=== PATIENT | female | born 1990 | race Caucasian/White ===

== ENCOUNTER 2018-04-21 23:48 | Observation (INO) ==
[2018-04-22] MEDS ORDERED: Ondansetron 4 MG/2 ML VIAL IVP ONE (00:13)
[2018-04-22] MEDS ORDERED: Ringers Solution, Lactated 1,000 ML IVC ONE (00:13)
[2018-04-22 00:54] LABS: Amphetamine Screen,Urine Negative ng/mL (Cutoff=1000); Barbiturate Screen,Urine Negative ng/mL (Cutoff=200); Benzodiazepines Screen,Urine Negative ng/mL (Cutoff=200); Cannabinoid Screen,Urine Negative ng/mL (Cutoff = 50); Cocaine Screen,Urine Negative ng/mL (Cutoff= 300); Opiate Screen,Urine Negative ng/mL (Cutoff=300); Phencyclidine Screen,Urine Negative ng/mL (Cutoff=25)
[2018-04-22] MEDS ORDERED: Pyridoxine (B-6) 50 MG TABLET PO ONE (01:30)
--- NOTE | 2018-04-22 01:37 | OB/GYN Progress Note ---
Date of Encounter: 04/22/18 Time of Encounter: 01:37 - Assessment and Plan (1) 28 weeks gestation of Current Visit: Yes Status: Acute Continue care as scheduled labor precautions given Discharge home (2) related nausea, antepartum Current Visit: Yes Status: Acute Eat small, frequent meals Sips of water throughout the day (3) Headache in Current Visit: Yes Status: Acute 650mg tylenol given Pt advised to visit emergency room for workup - declined. Qualifiers: Trimester: third trimester Qualified Code(s): O26.893 - Other specified related conditions, third trimester; R51 - Headache Subjective - Subjective Principal diagnosis: nausea in Interval history: Ms. Salinas is a 27-year-old female at 28 weeks who presents with complaints of decreased movement for the last 10 hours. She denies contractions, leakage of fluid, vaginal bleeding. She also reports that she has been nauseated for this time although has not tried any home remedies to cure her nausea. Antepartum ROS: new complaints, no loss of fluid, no vaginal bleeding, no movement normal, no contractions Objective - Vital Signs Vital Signs: Intake and Output 04/21/18 04/21/18 04/22/18 15:59 23:59 07:59 Other: Weight 76.657 kg Patient Weight 04/22/18 23:59 Weight 76.657 kg - Exam FHR: category 1 FHR comments: Baseline 140 Moderate variability Accelerations 10x10 Decelerations absent FHR Category I Auscultation: bilateral: normal Abdomen: Present: normal appearance, soft, gravid Uterus: Present: normal, firm
[2018-04-22] MEDS ORDERED: Acetaminophen 325 MG TABLET PO ONE (02:21)
[2018-04-22] MEDS ORDERED: Pyridoxine (B-6) 50 MG TABLET PO SCH (09:00)
== END 2018-04-22 02:40 | disposition home or self-care (01) ==
LOC: 1NENULAB
PROVIDERS: ADMIT Obstetrics & Gynecology; ATTEND Obstetrics & Gynecology

== ENCOUNTER → 2018-05-29 16:55 | Observation (INO) ==
[2018-05-29 16:39] LABS: Amphetamine Screen,Urine Negative ng/mL (Cutoff=1000); Barbiturate Screen,Urine Negative ng/mL (Cutoff=200); Benzodiazepines Screen,Urine Negative ng/mL (Cutoff=200); Cannabinoid Screen,Urine Negative ng/mL (Cutoff = 50); Cocaine Screen,Urine Negative ng/mL (Cutoff= 300); Opiate Screen,Urine Negative ng/mL (Cutoff=300); Phencyclidine Screen,Urine Negative ng/mL (Cutoff=25)
--- NOTE | 2018-05-29 16:55 | OB/GYN Progress Note ---
Date of Encounter: 05/29/18 Time of Encounter: 16:52 - Assessment and Plan (1) 33 weeks gestation of Current Visit: Yes Status: Acute (2) Decreased movement Current Visit: Yes Status: Acute Patient has felt some movement in triage, reactive NST, cervix 50/-2. Discharged home with labor and when to return to triage precautions. Patient verbalizes understanding Qualifiers: Fetus number: single or unspecified fetus Trimester: third trimester Qualified Code(s): O36.8130 - Decreased movements, third trimester, not applicable or unspecified Subjective - Subjective Interval history: 33 weeks presents to triage with complaints of decreased movement, and occasional contractions. Patient states she really has not felt the baby move since noon today, had contractions off and on yesterday and still has continued to have a couple today Denies vaginal bleeding. Antepartum ROS: movement normal, contractions, no loss of fluid, no vaginal bleeding Objective - Exam FHR: auscultation normal FHR comments: Baseline 130
== END | disposition home or self-care (01) ==
LOC: 1NENULAB
PROVIDERS: ADMIT Obstetrics & Gynecology; ATTEND Obstetrics & Gynecology

== ENCOUNTER 2018-06-23 13:42 | Observation (INO) ==
[2018-06-23] MEDS ORDERED: Ringers Solution, Lactated 1,000 ML IVC SCH (14:15)
[2018-06-23 15:11] LABS: Amphetamine Screen,Urine Negative ng/mL (Cutoff=1000); Barbiturate Screen,Urine Negative ng/mL (Cutoff=200); Benzodiazepines Screen,Urine Negative ng/mL (Cutoff=200); Cannabinoid Screen,Urine Negative ng/mL (Cutoff = 50); Cocaine Screen,Urine Negative ng/mL (Cutoff= 300); Opiate Screen,Urine Negative ng/mL (Cutoff=300); Phencyclidine Screen,Urine Negative ng/mL (Cutoff=25)
--- NOTE | 2018-06-23 16:09 | OB/GYN Progress Note ---
Date of Encounter: 06/23/18 Time of Encounter: 16:01 - Assessment and Plan (1) 37 weeks gestation of Current Visit: Yes Status: Acute NST reactive serial vaginal exams - no change Contractions decreased after fluid bolus and rest Discharge home with labor precautions Follow up in office with routine care as scheduled and PRN (2) NST (non-stress test) reactive Current Visit: Yes Status: Acute Subjective - Subjective Principal diagnosis: Contractions Interval history: Ms Salinas presents to the office with c/o contractions that began at 0400 this morning and have progressively worsened throughout the day. She states she had intercourse last night. She states positive movement. She denies headache, vision changes, epigastric pain, and leaking of fluid/vaginal bleeding. During this she has had GDM. She has a significant medical history DVT postop from hip surgery, 4 miscarriages, and seizure disorder. She has been seeing Dr Martins for her care. Antepartum ROS: movement normal, contractions, no loss of fluid, no vaginal bleeding Objective - Vital Signs Vital Signs: Intake and Output 06/23/18 06/23/18 06/23/18 07:59 15:59 23:59 Other: Weight 78.8 kg Patient Weight 06/23/18 23:59 Weight 78.8 kg - Exam FHR: auscultation normal, category 1 FHR comments: Baseline 135 Category I after position change and fluid bolus upon initial arrival Auscultation: bilateral: normal Abdomen: Present: normal appearance, soft, gravid Uterus: Present: normal. Absent: firm, tenderness Cervical dilation: 3 Cervix effacement: 75 station: -2
== END 2018-06-23 16:25 | disposition home or self-care (01) ==
LOC: 1NENULAB
PROVIDERS: ADMIT Advanced Practice Midwife; ATTEND Advanced Practice Midwife

== ENCOUNTER 2018-06-25 17:47 | Observation (INO) ==
[2018-06-25 18:49] LABS: Amphetamine Screen,Urine Negative ng/mL (Cutoff=1000); Barbiturate Screen,Urine Negative ng/mL (Cutoff=200); Benzodiazepines Screen,Urine Negative ng/mL (Cutoff=200); Cannabinoid Screen,Urine Negative ng/mL (Cutoff = 50); Cocaine Screen,Urine Negative ng/mL (Cutoff= 300); Opiate Screen,Urine Negative ng/mL (Cutoff=300); Phencyclidine Screen,Urine Negative ng/mL (Cutoff=25)
--- NOTE | 2018-06-25 19:22 | OB/GYN Progress Note ---
Date of Encounter: 06/25/18 Time of Encounter: 19:16 - Assessment and Plan (1) 37 weeks gestation of Current Visit: Yes Status: Chronic (2) Decreased movement Current Visit: Yes Status: Acute NST reactive with baseline 135, no decels, infrequent contractions. Qualifiers: Fetus number: single or unspecified fetus Trimester: third trimester Qualified Code(s): O36.8130 - Decreased movements, third trimester, not applicable or unspecified
== END 2018-06-25 20:00 | disposition home or self-care (01) ==
LOC: 1NENULAB
PROVIDERS: ADMIT Advanced Practice Midwife; ATTEND Advanced Practice Midwife

== ENCOUNTER 2018-07-02 07:53 | Inpatient (IN) ==
[2018-07-02 06:51] LABS: Amphetamine Screen,Urine Negative ng/mL (Cutoff=1000); Barbiturate Screen,Urine Negative ng/mL (Cutoff=200); Benzodiazepines Screen,Urine Negative ng/mL (Cutoff=300); Cannabinoid Screen,Urine Negative ng/mL (Cutoff = 50); Cocaine Screen,Urine Negative ng/mL (Cutoff= 300); Opiate Screen,Urine Negative ng/mL (Cutoff=300); Phencyclidine Screen,Urine Negative ng/mL (Cutoff=25)
--- NOTE | 2018-07-02 07:04 | OB/GYN History & Physical ---
Date of Encounter: 07/02/18 Time of Encounter: 06:54 Assessment and Plan (1) 38 weeks gestation of Current visit: Yes Status: Acute Admit to observation for labor evaluation Recheck cervix in 1-2 hours May ambulate as needed (2) Gestational diabetes Current visit: Yes Status: Acute Check fasting blood sugar, then in 2 hours Monitor for s/s of hypoglycemia Qualifiers: Gestational diabetes mellitus control: oral hypoglycemic-controlled Trimester: third trimester Qualified Code(s): O24.415 - Gestational diabetes mellitus in , controlled by oral hypoglycemic drugs (3) NST (non-stress test) reactive Current visit: No Status: Acute FHR 140 bpm, moderate variability, + 15x15 accels, no decels. Intermittent monitoring History of Present Illness Chief complaint: Labor HPI: Ms. Salinas is a 27 year old female at 38w3d who presents to L&D with complaints of contractions all night long. Denies fluid leakage and bleeding, reports active fetus. complicated by GDM, on Metformin. Previous recurrent losses. Workup completed by Dr. Martins during this . Blood type B+ GBS positive Rubella Immune HbSAG Non reactive T. Pall negative Varicella Immune Medical history significant for asthma, DVT in 2016 after hip surgery, stress seizures, PTSD, migraine headaches, and multiple surgeries. Dr. Martins aware of patient presence and status. Past Med Surg Social Fam HX - Past Medical History Source: patient Medical history: DVT, migraine, seizures Additional medical history: last seizure over a year ago Psychiatric history: anxiety, depression, PTSD - Past Surgical History Surgical History: cholecystectomy, orthopedic, other Additional surgical history: left wrist x2, left elbow x1, right hip sx - Social History Smoking Status: Current every day smoker Packs per day: 1/2 Smokeless Tobacco Status: No Alcohol use: none Drug use: none Activity Level: Independent ambulation Recent Out of Country Travel Within the Last 8 Weeks: No Exposure or Possible Exposure to Illness During Travel: No - Family History Father Living Status: Still Living Hx Family Cardiac Disorders: No Hx Family Respiratory Disorders: No Hx Family Cancer: No Hx Family GI Disorders: No Hx Family Endocrine Disorder: Yes (DM) Hx Family Neuromuscular Disorders: No Hx Family Neurologic Disorders: No Hx Family HEENT Disorders: No Hx Family Autoimmune Disorders: No Hx Family Psychosocial Disorders: Yes Obstetrical History - Pregnancies : 6 Para: 1 Term: 1 : 0 Ab's: 4 Livin Medications and Allergies Pnv62/FA/Om3/Dha/Epa/Fish Oil [[facility] Gummy Vitamins] 1 each PO DAILY 12/08 [History] Folic Acid [Folic Acid] 1 mg PO DAILY 02/20/18 [History] Famotidine [Pepcid] 1 tab PO BID 04/22/18 [History] metFORMIN [Glucophage] 500 mg PO BIDWM 05/29/18 [History] Albuterol Sulfate [Albuterol Inhaler] 1 puff PO PRN 07/02/18 [History] 3 Allergy/AdvReac Type Severity Reaction Status Date / Time ceftriaxone [From Rocephin] Allergy Anaphylaxis Verified 07/02/18 06:22 cefuroxime [From Ceftin] Allergy Anaphylaxis Verified 07/02/18 06:22 sumatriptan [From Imitrex] Allergy Anaphylaxis Verified 07/02/18 06:22 ziprasidone [From Geodon] Allergy Swelling Verified 07/02/18 06:22 of Lip/Tongue/Throat latex AdvReac Anaphylaxis Verified 07/02/18 06:22 naproxen AdvReac Hives Verified 07/02/18 06:22 tramadol AdvReac Hives Verified 07/02/18 06:22 Review of System OB - Psychiatric Psychiatric: anxiety, suicidal ideation Exam - Constitutional Constitutional: well developed, well nourished, no acute distress - Neck Neck exam: full ROM - Lungs Respiratory exam: CTAB - Cardiovascular Cardiovascular exam: RRR, +S1, +S2 - Breasts Breast: bilateral: normal - Abdomen Abdomen: Present: bowel sounds normal, gravid, non tender - Extremities Extremities exam: full ROM, normal capillary refill, normal inspection - Vagina Vagina: Present: normal moisture - Cervix Dilation: 5 (4.5 per RN) Effacement: 80 Station: -2 - Uterus Uterus exam: Present: normal size Results All other labs normal. - VTE Reasons for not Prescribing Prophylaxis: Treatment not Indicated - Low risk for VTE
[~2018-07-02 07:53] MED LIST: Famotidine 20 MG/2 ML VIAL IVP PRN; Metoclopramide 10 MG/2 ML VIAL IVP PRN; Naloxone 0.4 MG/ML INJ IVP PRN; Ondansetron 4 MG/2 ML VIAL IVP PRN; Penicillin G Potassium 5,000,000 UNIT in 0.9 % Sodium Chloride Mini Bag 100 ML IVPB ONE; Ringers Solution, Lactated 1,000 ML IVC SCH
[2018-07-02] MEDS ORDERED: Penicillin G Potassium 2,500,000 UNIT in 0.9 % Sodium Chloride 100 ML IVPB SCH (08:00)
[2018-07-02 08:43] LABS: Basophils % 0.2 %; Eosinophils % 0.2 %; Hematocrit 35.7 % (35.3-44.9); Hemoglobin 12.3 g/dL (11.5-15.4); Immature Granulocytes % 0.7 % (0-4); Lymphocytes # 1.8 K/mcL (0.6-4.6); Lymphocytes % 13.7 %; Mean Corpuscular HGB Conc 34.5 g/dL (31.6-35.5); Mean Corpuscular Hemoglobin 29.5 pg (28.0-33.3); Mean Corpuscular Volume 85.6 fL (83.0-100.0); Mean Platelet Volume 10.8 fL (9.4-12.4); Monocytes # 0.7 K/mcL (0.0-1.3); Monocytes % 5.1 %; Neutrophils # 10.3 K/mcL (1.6-8.9); Platelet Count 186 K/mcL (140-400); Red Blood Count 4.17 M/mcL (3.82-4.97); Red Cell Distribution Width 13.2 % (11.5-14.5); Segmented Neutrophils % 80.1 %
[2018-07-02] MEDS ORDERED: *HR* FentaNYL (PF) 100 MCG/2 ML VIAL ONE (08:53)
[2018-07-02] MEDS ORDERED: Lidocaine -MPF 1% 5 ML AMPUL ONE (08:54)
[2018-07-02] MEDS ORDERED: Bupivacaine-MPF 0.25% 10 ML VIAL ONE (08:54)
[2018-07-02] MEDS ORDERED: Epidural Premix (fent/bupiv) 110 ML EP ONE (09:16)
[2018-07-02] MEDS ORDERED: Bupivacaine-MPF 0.25% 10 ML VIAL EP ONE (09:20)
[2018-07-02] MEDS ORDERED: EPHEDrine 50 MG/ML VIAL IVP PRN (09:20)
[2018-07-02] MEDS ORDERED: *HR* FentaNYL (PF) 100 MCG/2 ML VIAL EP ONE (09:20)
--- NOTE | 2018-07-02 09:23 | Anesthesia Procedures ---
Date of Encounter: 07/02/18 Time of Encounter: 09:00 Procedures: Anesthesia - Epidural/Spinal Patient ID/Chart reviewed: Yes Patient examined: Yes OB Eval: Contractions: Non-stressed pattern Consent Obtained: Yes Supplemental Oxygen: None/Room Air Site Prep: Aseptic Technique Patient position: upright Local Anesthetic: Lidocaine 1% Amount of Local Anesthetic used: 3 Touhy Needle Gauge: 18 Touhy Needle Depth (cm): 5 Catheter Depth at Skin (cm): 12 Test Dose (1.5% Lido + Epi): Volume given (mls): 3 Test Dose Result: Negative Loading Dose: 0.25% Marcaine (mls): 5 Loading Dose: Fentanyl (mcg): 100 Loading Dose Administered: Thru Touhy Needle Infusion Med: 0.125% Bupivacaine w/ 2 mcg/ml Fentanyl Catheter Secured in Place: Tegaderm Interspace Used: L3-L4 Loss of Resistance (THIERRY): Yes Blood: No CSF: No Paresthesia: No
--- NOTE | 2018-07-02 09:25 | Anesthesia Evaluation PreOp ---
Date of Encounter: 07/02/18 Time of Encounter: 09:00 - Past History Planned Operation: katy Cardiac History: Denies any Significant Hx Pulmonary History: Smoker, Asthma SENIOR RESEARCH MANAGER History: Denies Any Significant HX Other Medical History: Diabetes Type II (gestational) Anesthesia History: No Prior Anesthetic Complications, Past Anesthesia : Yes Alcohol Use: none Drug use: none Medications and Allergies Pnv62/FA/Om3/Dha/Epa/Fish Oil [[facility]vs Gummy Vitamins] 1 each PO DAILY 12/08 [History] Folic Acid [Folic Acid] 1 mg PO DAILY 02/20/18 [History] Famotidine [Pepcid] 1 tab PO BID 04/22/18 [History] metFORMIN [Glucophage] 500 mg PO BIDWM 05/29/18 [History] Albuterol Sulfate [Albuterol Inhaler] 1 puff PO PRN 07/02/18 [History] 3 Allergy/AdvReac Type Severity Reaction Status Date / Time ceftriaxone [From Rocephin] Allergy Anaphylaxis Verified 07/02/18 06:22 cefuroxime [From Ceftin] Allergy Anaphylaxis Verified 07/02/18 06:22 sumatriptan [From Imitrex] Allergy Anaphylaxis Verified 07/02/18 06:22 ziprasidone [From Geodon] Allergy Swelling Verified 07/02/18 06:22 of Lip/Tongue/Throat latex AdvReac Anaphylaxis Verified 07/02/18 06:22 naproxen AdvReac Hives Verified 07/02/18 06:22 tramadol AdvReac Hives Verified 07/02/18 06:22 - Meds/Allergy Pre-op Review Medications Reviewed: Yes Allergies Reviewed: Yes Beta Blockers on Current Med List: No Anesthesia Results - Labs 07/02/18 08:05 Anesthesia Exam O2 Sat Height 1.65 m Weight 81.647 kg Height: 65 Weight: 81 - HEENT Pupil (Motor): Pupils equal Mallampati: II Teeth: Normal Oral Opening: Greater than 3 - SENIOR RESEARCH MANAGER LOC: Oriented SENIOR RESEARCH MANAGER Motor: Normal RUE, Normal LUE, Normal RLE, Normal LLE, Normal Face SENIOR RESEARCH MANAGER Sensory: Normal: RUE, LUE, RLE, LLE, Face - Cardiac Rhythm: Regular Murmur: None JVD: No Carotid Bruit: No - Pulmonary Breath Sounds: bilateral Clear Respiratory Effort: Symmetrical Anesthesia Assess/Plan ASA Score: 2 Modified Melvin Scale for Level of Consciousness: Cooperative, oriented, and tranquil Anesthetic Plan: Regional Monitoring Plan: Standard Monitors
[2018-07-02] MEDS ORDERED: Epidural Premix (fent/bupiv) 110 ML EP SCH (09:30)
--- NOTE | 2018-07-02 11:36 | OB Labor Progress Note ---
Date of Encounter: 07/02/18 Time of Encounter: 11:35 Labor Progress Note - Subjective Subjective: Pt comfortable with epidural. - Heart Tones Heart Tones: Category I - Well[place] Wellton: irregular - Plan Plan: Plan for pitocin augmentation. Frequent repositioning. Anticipate .
[2018-07-02] MEDS ORDERED: Oxytocin 20 units/ LR 1000 mL 20 UNIT/1,000 ML BAG IVC ONE (11:41)
[2018-07-02] MEDS ORDERED: Oxytocin 20 units/ LR 1000 mL 20 UNIT/1,000 ML BAG IVC SCH ×2 (11:45→16:02)
--- NOTE | 2018-07-02 13:15 | OB/GYN Procedure Note ---
Delivery - Delivery Date: 07/02/18 Provider: Marjorie Will Intrapartum events: none, meconium Delivery induction: none Delivery augmentation: pitocin Delivery monitor: external FHT, external uterine Anesthesia: epidural Quantitated Blood Loss: 100 - Infant (s) Infant A Delivery Date: 07/02/18 Infant Delivery Time: 12:42 Presentation: vertex Position: PRINCE Route of delivery: Gender: Male Viability: Viable Pounds: 6 Weight Gram: 2.735 kg at 1 minute: 8 at 5 mins: 9 Shoulder Dystocia: not encountered Placenta: spontaneous Cord: nuchal cord, 3 umbilical vessels - Repair Episiotomy: none Laceration Description: None - Complications Delivery complications: none - Disposition Mom disposition: stable in LDR disposition: stable in LDR - Comments Comments: Ms. Salinas is a 27 year old female who presented at 38w3d with contractions and progressed to a . Loose nuchal easily reduced. Patient delivered a viable baby boy "Aristides" weighing 6lbs with apgars of 8 at 1 minute and 9 at 5 minutes. Cord was clamped and cut after pulsation ceased. Placenta delivered spontaneously and intact. EBL 100ml. Mom resting with baby skin-to- skin.
[2018-07-02] MEDS ORDERED: Measles/Mumps/Rubella Vacc 0.5 ML VIAL SQ PRN (16:02)
[2018-07-02] MEDS ORDERED: Acetaminophen 325 MG TABLET PO PRN (16:02)
[2018-07-02] MEDS ORDERED: *HR* Enoxaparin 40 MG/0.4 ML SYRINGE SQ SCH (21:00)
[2018-07-02] MEDS: Ibuprofen 600 MG TABLET PO PRN (22:12)
[2018-07-03] MEDS: Ibuprofen 600 MG TABLET PO PRN ×2 (04:13→10:37)
[2018-07-03] MEDS ORDERED: *HR* Enoxaparin 40 MG/0.4 ML SYRINGE SQ SCH (06:00)
[2018-07-03] MEDS ORDERED: Prenatal Vit/FA 1 EACH TABLET PO SCH (09:00)
[2018-07-03 09:21] VITALS: BP 110/66
--- NOTE | 2018-07-03 09:58 | Discharge Summary ---
Date of Encounter: 07/03/18 Time of Encounter: 09:54 - Discharge Diagnosis (1) Vaginal delivery Priority: Primary Status: Acute Comments: S/P vaginal delivery day 1 Pain is well controlled lochia is light and without clots Tolerating regular diet. Voiding without difficulty and passing flatus VSS Breast feeding Discharge home today (2) History of DVT of lower extremity Priority: Secondary Status: Acute - Discharge Medications Prescriptions: Ibuprofen [Motrin] 600 mg PO Q6HR PRN #30 tablet PRN Reason: Cramping Docusate [Colace] 100 mg PO BID PRN #30 capsule PRN Reason: Constipation Enoxaparin [Lovenox] 40 mg SQ 0600 42 Days #42 syringe Ferrous Sulfate 325 mg PO DAILY #90 tablet Home Medications: Pnv62/FA/Om3/Dha/Epa/Fish Oil [[facility] Gummy Vitamins] 1 each PO DAILY 12/08 [History] Folic Acid 1 mg PO DAILY 02/20/18 [History] Famotidine [Pepcid] 1 tab PO BID 04/22/18 [History] Albuterol Sulfate [Albuterol Inhaler] 1 puff PO PRN 07/02/18 [History] Acetaminophen [Tylenol] 650 mg PO Q6HR PRN tablet 07/03/18 [Rx] Calcium Carbonate [Tums] 1,000 mg PO Q4HR PRN tab.chew 07/03/18 [Rx] Docusate [Colace] 100 mg PO BID PRN #30 capsule 07/03/18 [Rx] Enoxaparin [Lovenox] 40 mg SQ 0600 42 Days #42 syringe 07/03/18 [Rx] Ferrous Sulfate 325 mg PO DAILY #90 tablet 07/03/18 [Rx] Ibuprofen [Motrin] 600 mg PO Q6HR PRN #30 tablet 07/03/18 [Rx] Allergies/Adverse Reactions: 3 Allergy/AdvReac Type Severity Reaction Status Date / Time ceftriaxone [From Rocephin] Allergy Anaphylaxis Verified 07/02/18 06:22 cefuroxime [From Ceftin] Allergy Anaphylaxis Verified 07/02/18 06:22 sumatriptan [From Imitrex] Allergy Anaphylaxis Verified 07/02/18 06:22 ziprasidone [From Geodon] Allergy Swelling Verified 07/02/18 06:22 of Lip/Tongue/Throat latex AdvReac Anaphylaxis Verified 07/02/18 06:22 naproxen AdvReac Hives Verified 07/02/18 06:22 tramadol AdvReac Hives Verified 07/02/18 06:22 Data Procedures and tests throughout hospitalization: Laboratory Tests 07/02/18 07/02/18 07/02/18 06:22 08:05 09:24 WBC 12.8 H RBC 4.17 Hgb 12.3 Hct 35.7 MCV 85.6 MCH 29.5 MCHC 34.5 RDW 13.2 Plt Count 186 MPV 10.8 Immature Gran % 0.7 Seg Neutrophils % 80.1 Lymphocytes % 13.7 Monocytes % 5.1 Eosinophils % 0.2 Basophils % 0.2 Neutrophils # 10.3 H Lymphocytes # 1.8 Monocytes # 0.7 Eosinophils # 0.0 Basophils # 0.0 POC Glucose 90 Urine Opiates Screen Negative Ur Barbiturates Screen Negative Ur Phencyclidine Scrn Negative Ur Amphetamines Screen Negative U Benzodiazepines Scrn Negative Urine Cocaine Screen Negative U Marijuana (THC) Screen Negative Ur Drug Screen Interp See Below 07/02/18 07/03/18 13:08 06:44 WBC RBC Hgb Hct MCV MCH MCHC RDW Plt Count MPV Immature Gran % Seg Neutrophils % Lymphocytes % Monocytes % Eosinophils % Basophils % Neutrophils # Lymphocytes # Monocytes # Eosinophils # Basophils # POC Glucose 81 119 H Urine Opiates Screen Ur Barbiturates Screen Ur Phencyclidine Scrn Ur Amphetamines Screen U Benzodiazepines Scrn Urine Cocaine Screen U Marijuana (THC) Screen Ur Drug Screen Interp Labs on day of discharge: Labs from last 24 hours 07/03/18 07/02/18 06:44 13:08 POC Glucose 119 H 81 Date of admission: 07/02/18 08:36 Primary care physician: Aline Carvalho CNP Consults: 07/02/18 16:02 Consult to Job Lithographer [CONS] Routine Comment: Vaginal delivery, consult needed 07/03/18 07:00 Consult to Needle Straightener (W&C) [CONS] Routine Reason For Exam: Reason for SW Consult: history of depression, now Discharging clinician: Fany Allen Anticipated date of discharge: 07/03/18 - Patient Status Disposition: Home, Self-Care Condition: Good Functional capacity at discharge: independent ambulation Overall status at discharge: patient is progressing back to baseline - Discharge Instructions Follow Up With: Aline Carvalho, DAVID [Primary Care Provider] - Candida Martins DO [Partnered Physician] - - Diet and Activity Activity: increase activity as tolerated Diet: regular diet Hospital Course Reason for admission: active labor, IUP at term Delivery: Episiotomy: none Other procedures: none complications: none Discharge diagnosis: IUP at term delivered [place] baby: male Time Attestation: Total time spent providing and/or coordinating discharge services: Time Spent: Less than 30 minutes Exam - Constitutional Vitals: Temp Pulse Resp BP Pulse Ox 97.8 F 97 14 110/66 98 07/03/18 09:20 07/03/18 09:20 07/03/18 09:20 07/03/18 09:20 07/03/18 09:20 General appearance IM: cooperative, A&O X 3, pleasant - Respiratory Respiratory exam: Present: CTAB - Cardiovascular Cardiovascular exam IM: Present: RRR, +S1, +S2 - GI/Abdominal GI/Abdominal exam IM: normal bowel sounds, soft - Rectal Rectal exam: deferred - Uterine Tone: Firm Uterus Position: At Umbilicus, Midline - Extremities Exam Extremities exam IM: Present: normal capillary refill, normal inspection, radial pulses palpable and symmetrical - Neurological Exam Neurological exam: alert, oriented X3
== END 2018-07-03 13:45 | disposition home or self-care (01) | DRG 560 ==
LOC: 1NENULAB → 1NENUOBS 16:00
PROVIDERS: ADMIT Advanced Practice Midwife; ATTEND Advanced Practice Midwife

== ENCOUNTER 2019-11-17 21:25 | Inpatient (IN) ==
[2019-11-17 20:59] LABS: Basophils % 0.2 %; Eosinophils % 0.1 %; Hematocrit 32.9 % (35.3-44.9); Hemoglobin 10.9 g/dL (11.5-15.4); Immature Granulocytes % 0.5 % (0-4); Lymphocytes # 0.5 K/mcL (0.6-4.6); Lymphocytes % 5.5 %; Mean Corpuscular HGB Conc 33.1 g/dL (31.6-35.5); Mean Corpuscular Hemoglobin 28.7 pg (28.0-33.3); Mean Corpuscular Volume 86.6 fL (83.0-100.0); Mean Platelet Volume 11.3 fL (9.4-12.4); Monocytes # 0.6 K/mcL (0.0-1.3); Monocytes % 5.8 %; Neutrophils # 8.4 K/mcL (1.6-8.9); Platelet Count 169 K/mcL (140-400); Red Cell Distribution Width 13.4 % (11.5-14.5); Segmented Neutrophils % 87.9 %; White Blood Count 9.5 K/mcL (4.3-11.1)
[2019-11-17 21:03] LABS: Amphetamine Screen,Urine Negative ng/mL (Cutoff=1000); Barbiturate Screen,Urine Negative ng/mL (Cutoff=200); Benzodiazepines Screen,Urine Negative ng/mL (Cutoff=200); Cannabinoid Screen,Urine Negative ng/mL (Cutoff = 50); Cocaine Screen,Urine Negative ng/mL (Cutoff= 300); Opiate Screen,Urine Negative ng/mL (Cutoff=300); Phencyclidine Screen,Urine Negative ng/mL (Cutoff=25)
[~2019-11-17 21:25] MED LIST changes: +*HR* FentaNYL (PF) 100 MCG/2 ML VIAL IVP PRN; +Azithromycin 500 MG in 0.9 % Sodium Chloride 250 ML IVPB ONE; +Lidocaine 1% 20 ML MDV INFILT PRN; +Ringers Solution, Lactated 2,000 ML ONE
[2019-11-17] MEDS ORDERED: Oxytocin 20 units/ LR 1000 mL 20 UNIT/1,000 ML BAG IVC SCH (22:30)
[2019-11-17] MEDS ORDERED: EPHEDrine 50 MG/ML VIAL IVP PRN (23:24)
[2019-11-17] MEDS ORDERED: Bupivacaine/EPI 1:200k 0.25%PF 10 ML VIAL INFILT ONE (23:27)
[2019-11-17] MEDS ORDERED: *HR* FentaNYL (PF) 100 MCG/2 ML VIAL ONE (23:27)
[2019-11-17] MEDS ORDERED: Epidural Premix (fent/bupiv) 110 ML EP ONE (23:28)
[2019-11-17] MEDS ORDERED: Epidural Premix (fent/bupiv) 110 ML EP SCH (23:30)
[2019-11-18] MEDS ORDERED: EPHEDrine 50 MG/ML VIAL ONE (00:12)
[2019-11-18] MEDS: Penicillin G Potassium 2,500,000 UNIT in 0.9 % Sodium Chloride 100 ML IVPB SCH ×2 (01:23→05:20)
[2019-11-18] MEDS ORDERED: Ropivacaine/PF 0.2% 20 ML VIAL ONE (06:46)
[2019-11-18] MEDS ORDERED: Oxytocin 20 units/ LR 1000 mL 20 UNIT/1,000 ML BAG IVC ONE (08:13)
[2019-11-18] MEDS ORDERED: Oxytocin 20 units/ LR 1000 mL 20 UNIT/1,000 ML BAG IVC SCH (08:13)
[2019-11-18] MEDS ORDERED: Measles/Mumps/Rubella Vacc 0.5 ML VIAL SQ PRN (08:13)
[2019-11-18] MEDS ORDERED: Rho Immune Globulin 1,500 UNIT SYRINGE IM PRN (08:13)
[2019-11-18] MEDS: Ibuprofen 600 MG TABLET PO PRN ×3 (08:44→22:09)
[2019-11-18] MEDS ORDERED: PAROXETINE HCL PO SCH (09:00)
[2019-11-18] MEDS: Prenatal Vit/FA 1 EACH TABLET PO SCH (11:16)
[2019-11-18] MEDS: Acetaminophen 325 MG TABLET PO PRN ×2 (12:28→18:49)
[2019-11-18] MEDS ORDERED: Ringers Solution, Lactated 500 ML IVC ONE (13:52)
[2019-11-18] MEDS ORDERED: Nicotine 14 MG PATCH.TD24 TD SCH (19:00)
[2019-11-18] MEDS: *HR* Enoxaparin 40 MG/0.4 ML SYRINGE SQ SCH (22:39)
[2019-11-19] MEDS: Ibuprofen 600 MG TABLET PO PRN (05:43)
[2019-11-19 07:36] LABS: Basophils % 0.2 %; Eosinophils % 0.4 %; Hemoglobin 10.5 g/dL (11.5-15.4); Immature Granulocytes % 0.6 % (0-4); Lymphocytes % 18.9 %; Mean Corpuscular HGB Conc 32.8 g/dL (31.6-35.5); Mean Corpuscular Hemoglobin 28.5 pg (28.0-33.3); Mean Platelet Volume 11.2 fL (9.4-12.4); Monocytes # 0.4 K/mcL (0.0-1.3); Monocytes % 6.8 %; Neutrophils # 3.9 K/mcL (1.6-8.9); Platelet Count 140 K/mcL (140-400); Red Blood Count 3.68 M/mcL (3.82-4.97); Red Cell Distribution Width 13.6 % (11.5-14.5); Segmented Neutrophils % 73.1 %; White Blood Count 5.3 K/mcL (4.3-11.1)
[2019-11-19 08:21] VITALS: BP 113/65
[2019-11-19] MEDS: Prenatal Vit/FA 1 EACH TABLET PO SCH (08:34)
[2019-11-19] MEDS ORDERED: Etonogestrel 68 MG IMPLANT IL ONE (08:36)
[2019-11-19] MEDS ORDERED: Lidocaine 1% 20 ML MDV INFILT ONE (08:36)
[2019-11-19] MEDS: *HR* Enoxaparin 40 MG/0.4 ML SYRINGE SQ SCH (08:37)
[2019-11-19] MEDS: Acetaminophen 325 MG TABLET PO PRN (08:37)
[2019-11-19] MEDS ORDERED: FLUoxetine HCl 10 MG CAPSULE PO SCH (09:00)
== END 2019-11-19 11:20 | disposition home or self-care (01) | DRG 560 ==
LOC: 1NENULAB → 1NENUOBS 11-18 09:55
PROVIDERS: ADMIT Advanced Practice Midwife; ATTEND Obstetrics & Gynecology

== ENCOUNTER 2021-01-24 18:04 | Observation (INO) ==
[2021-01-24 18:27] LABS: Bilirubin,Urine Negative (Negative); Blood,Urine Trace (Negative); Clarity,Urine Clear (Clear); Color,Urine Colorless (Yellow); Glucose,Urine (UA) Normal (Normal); Ketones,Urine Negative (Negative); Leukocyte Esterase,Urine Negative (Negative); Nitrite,Urine Negative (Negative); Protein,Urine Negative (Neg-Trace); RBC,Urine 0-3 per hpf (0-3); Specific Gravity,Urine 1.016 (1.010-1.025); Squamous Epithelial Cell,Urine Few per hpf (None-Few); Urobilinogen,Urine Normal (Normal)
[2021-01-24 18:49] LABS: Basophils # 0.4 K/mcL (0.0-0.2); Eosinophils # 0.1 K/mcL (0.0-0.6); Eosinophils % 0.6 %; Hematocrit 42.3 % (35.3-44.9); Hemoglobin 14.4 g/dL (11.5-15.4); Immature Granulocytes % 1.5 % (0-4); Lymphocytes # 3.6 K/mcL (0.6-4.6); Lymphocytes % 17.6 %; Mean Corpuscular Hemoglobin 29.6 pg (28.0-33.3); Mean Corpuscular Volume 86.9 fL (83.0-100.0); Mean Platelet Volume 10.4 fL (9.4-12.4); Monocytes # 0.8 K/mcL (0.0-1.3); Monocytes % 3.8 %; Neutrophils # 15.1 K/mcL (1.6-8.9); Platelet Count 370 K/mcL (140-400); Red Blood Count 4.87 M/mcL (3.82-4.97); Red Cell Distribution Width 13.9 % (11.5-14.5); Segmented Neutrophils % 74.5 %; White Blood Count 20.3 K/mcL (4.3-11.1)
[2021-01-24 19:02] LABS: Alanine Aminotransferase 18 Units/L (7-52); Albumin 4.5 g/dL (3.5-5.7); Albumin/Globulin Ratio 1.7 (1.1-2.2); Alkaline Phosphatase 86 Units/L (34-104); Aspartate Amino Transferase 13 Units/L (13-39); BUN/Creatinine Ratio 23 (6-26); Bilirubin,Direct 0.1 mg/dL (0.0-0.2); Bilirubin,Indirect 0.1 mg/dL (0.0-1.0); Bilirubin,Total 0.2 mg/dL (0.3-1.0); Blood Urea Nitrogen 18 mg/dL (6-20); Calcium 9.3 mg/dL (8.6-10.3); Carbon Dioxide 22 mEq/L (23-29); Chloride 106 mEq/L (98-107); Globulin 2.7 g/dL (2.4-3.5); Glucose 106 mg/dL (70-105); Lipase 61 Units/L (11-82); Osmolality,Calculated 284 (280-300); Potassium 3.8 mEq/L (3.5-5.1); Sodium 136 mEq/L (136-145); Total Protein 7.2 g/dL (6.4-8.9); eGFR For African Americans > 60 (> 60); eGFR For Non-African Americans > 60 (> 60)
[2021-01-24] MEDS ORDERED: Isovue-370 500 ML BOTTLE IVP ONE (19:14)
[2021-01-24] MEDS ORDERED: Ondansetron 4 MG/2 ML VIAL IVP ONE ×2 (19:18→21:01)
[2021-01-24] MEDS ORDERED: 0.9 % Sodium Chloride 1,000 ML IV ONE (19:18)
[2021-01-24] MEDS ORDERED: *HR* FentaNYL (PF) 100 MCG/2 ML VIAL IVP ONE (19:18)
[2021-01-24] MEDS ORDERED: *HR* HYDROmorphone (PF) 1 MG/ML SYRINGE IVP ONE (21:01)
[2021-01-24] MEDS ORDERED: *HR* Propofol 200 MG/20 ML VIAL IVP ONE ×2 (22:01→22:25)
[2021-01-24] MEDS ORDERED: Lidocaine HCL 4 ML Topical Solution (Laryng-O-Jet Kit Sterile Pak) TP ONE ×2 (22:02→22:04)
[2021-01-24] MEDS ORDERED: Lidocaine -MPF 2% 2 ML VIAL ONE (22:02)
[2021-01-24] MEDS ORDERED: Ondansetron 4 MG/2 ML VIAL ONE ×2 (22:04→23:17)
[2021-01-24] MEDS ORDERED: *HR* Rocuronium Bromide 50 MG/5 ML VIAL ONE (22:04)
[2021-01-24] MEDS ORDERED: *HR* Succinylcholine 200 MG/10 ML VIAL IVP ONE (22:04)
[2021-01-24] MEDS ORDERED: ceFAZolin 2,000 MG in 0.9 % Sodium Chloride 100 ML IVPB ONE (22:21)
[2021-01-24] MEDS ORDERED: *HR* HYDROMORPHONE 2 MG/ML VIAL ONE (22:25)
[2021-01-24] MEDS ORDERED: *HR* FentaNYL (PF) 100 MCG/2 ML VIAL ONE (22:25)
[2021-01-24] MEDS ORDERED: *HR* Belladonna Alkaloids/Opium 30 MG RECTAL SUPPOSITORY RC ONE ×2 (22:28→23:50)
[2021-01-24] MEDS ORDERED: Scopolamine Patch 1.5 MG PATCH.TD72 TD STA (22:38)
[2021-01-24] MEDS ORDERED: *HR* FentaNYL (PF) 100 MCG/2 ML VIAL IVP PRN (22:42)
[2021-01-24] MEDS ORDERED: Nitroglycerin 0.4 MG TAB.SUBL SL PRN (22:42)
[2021-01-24] MEDS ORDERED: Naloxone 0.4 MG/ML INJ IVP PRN (22:42)
[2021-01-24] MEDS ORDERED: Albuterol 2.5 MG/3 ML NEBULIZER IH PRN (22:42)
[2021-01-24] MEDS ORDERED: *HR* Promethazine 25 MG/ML VIAL IM PRN (22:42)
[2021-01-24] MEDS ORDERED: Clindamycin 900 MG/50 ML 900 MG/50 ML IV.SOLN IVPB ONE (22:43)
[2021-01-24] MEDS ORDERED: Gentamicin 300 MG in 0.9 % Sodium Chloride 100 ML IVPB ONE (22:44)
[2021-01-24] MEDS ORDERED: Clindamycin 600 MG/50 ML 600 MG/50 ML IV.SOLN IVPB ONE (23:05)
[2021-01-24] MEDS ORDERED: Neostigmine Methylsulfate 3 MG/3 ML SYRINGE ONE (23:37)
[2021-01-24] MEDS ORDERED: *HR* OxyCODONE Immed Rel 5 MG TABLET PO ONE (23:51)
[2021-01-25] MEDS: *HR* HYDROmorphone (PF) 1 MG/ML SYRINGE IVP PRN ×6 (00:11→01:02)
[2021-01-25] MEDS ORDERED: Ringers Solution, Lactated 1,000 ML ONE (00:29)
[2021-01-25] MEDS ORDERED: *HR* OxyCODONE Immed Rel 5 MG TABLET PO ONE (02:05)
[2021-01-25 03:03] VITALS: BP 106/66
== END 2021-01-25 03:22 | disposition home or self-care (01) ==
LOC: EMEROOARM 18:04 → 1NENUOBS 18:04 → EMEROOARM 22:25
PROVIDERS: ADMIT Obstetrics & Gynecology; ATTEND Obstetrics & Gynecology